=== PATIENT | female | born 1965 | race Caucasian/White ===

== ENCOUNTER 2019-11-01 09:20 | Outpatient (CLI) | payer MEDICARE, MEDICAID, SELFPAY ==
--- NOTE | 2019-11-01 20:13 | ONC CON_ITS ---
Dr. Kilgore New Patient Note Patient: Cielo Pimentel Unit #: [id number]: [id number] Dicatated By: Leandro Kilgore M.D.Date of Visit: Nov 01, 2019 Onc MED New Patient/Consult Referring Physician: SABRINA LEAHY, F.N.P. Chief Complaint: Vulvar cancer. 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 She had presented with an area of irritation and skin thickening involving the right labia majora with extension to the left labia majora. She had indicated she had been aware of a lesion in that area for at least 35 years. The initial biopsies on 12/16/2018 showed squamous cell carcinoma in situ involving both the right and left labia majora. She was then referred to Dr. Nickerson in [place]. She underwent radical partial vulvectomy on 01/24/2019. Pathology showed moderately differentiated keratinizing squamous cell carcinoma which was noted to be present multifocally within a broad area of carcinoma in situ. The largest contiguous area of invasion measured 1.3 cm in greatest dimension. The depth of invasion was 4 mm. The closest margin of invasive carcinoma measured 1.8 cm. The closest margin of in situ cancer measured 0.4 cm. It was classified as a T1b tumor based on the depth of invasion. During her postoperative follow-up care she had some issues with the dissolvable sutures, which apparently did not all dissolved. Ultimately, though, she was recommended to proceed with staging bilateral femoral inguinal sentinel lymphadenectomy. However, she declined to have any further surgery. To my knowledge she has not had any other staging evaluation. She now seeks a second opinion regarding her further management. Her medical history is significant in that she has heterozygous for alpha-1 antitrypsin deficiency. She has asthma/COPD, and she has nonalcoholic steatohepatitis with cirrhosis. She also has gastroparesis. She says she feels good, though her energy is not that good, and she does have to take naps. Her ECOG score is 1. She does not have very good appetite. Her weight fluctuates. She does not have fever, night sweats, or hot flashes. She says her breathing is okay with her inhaler. She has just occasional cough. She does not complain of chest pain. She has nausea and occasional vomiting associated with the gastroparesis. She has acid reflux. Her bowels are sometimes loose, but sometimes hard. She has no complaints with bladder function, she does occasionally have swelling. She sometimes has pain in her wrists or fingers. She has a history of migraine headaches, but they have been pretty well managed with Topamax. She occasionally has dizziness. She has no focal neurologic symptoms. Past Medical History: Her medical history includes anxiety/depression, asthma, chronic diarrhea, chronic obstructive pulmonary disease, degenerative arthritis, gastroesophageal reflux disease, gastroparesis, hypothyroidism, migraine headaches, and non-alcoholic steatohepatitis with cirrhosis. She is known to have heterozygosity for alpha 1 antitrypsin deficiency, Past Surgical History: She underwent biopsy of the vulvar lesion on 12/16/2018 and she underwent radical partial vulvectomy on 01/24/2019. Her other surgical/procedural history includes appendectomy, cholecystectomy, left breast lumpectomy for benign disease, tubal ligation, and hysterectomy without oophorectomy in 2002. Medications: Advair HFA 1 Puff(s) (of 230-21 mcg/act) Aerosol Inhalation b.i.d., Atorvastatin Calcium 1 Tablet (of 40 mg) Oral daily, Carafate 1 Tablet (of 1 g) Oral four times a day, EpiPen 2-Gildardo Injection PRN, Fenofibrate 1 Tablet (of 145 mg) Oral daily, Fish Oil 1 Capsule (of 1000 mg) Oral four times a day, IBU 1 Tablet (of 800 mg) Oral q 6 hours, Lasix 1 Tablet (of 40 mg) Oral PRN, Levothyroxine Sodium 1 Tablet (of 25 mcg) Oral daily, Singulair 1 Tablet (of 10 mg) Oral daily, Topamax 1 Tablet (of 200 mg) Oral b.i.d., Xopenex HFA 2 Puff(s) (of 45 mcg/act) Aerosol Inhalation PRN Allergies: Adhesive Tape, Codeine Sulfate, Erythromycin, HYDROcodone-Acetaminophen, Insect Stings, Morphine Sulfate, Reglan, and Wellbutrin. Social History: Ms. Pimentel is . She has a history of smoking for 30 years, previously up to 1 pack of cigarettes daily. For at least 10 years or more she has cut down her smoking to less than 1/2 pack/day. She does not drink alcohol. Family History: Father in a motor vehicle accident at age 32. Her mother reportedly of cancer at age 42, type unknown to the patient. She has 5 brothers and 3 sisters. One brother and one sister with complications of alpha-1 antitrypsin deficiency. Another brother is still living with homozygous alpha-1 antitrypsin deficiency. Another brother has coronary artery disease and diabetes. Review Of Symptoms: Constitutional - Her energy is not very good. She does light work at home. Her appetite is poor. Her weight fluctuates. No fever, chills, hot flashes, or night sweats. ECOG score is 1, Eyes - No change in vision, ENMT - No hearing loss or tinnitus. She has allergies. No mouth sores. No sore throat or difficulty swallowing, Hematologic/Lymphatic - No abnormal bruising or bleeding, Respiratory - No shortness of breath. No cough. No pleuritic pain or hemoptysis. She does smoke cigarettes, less than half a pack a day, Cardiovascular - No angina pain. No palpitations, Gastrointestinal - She has gastroparesis with nausea and with occasional vomiting. She has heartburn and acid reflux. Her bowels vary between diarrhea and constipation. No blood in the stool or black stools, Genitourinary (F) - No dysuria or hematuria. No urinary frequency. No urgency or incontinence, Musculoskeletal - She occasionally has pain in her fingers and wrists, Integumentary - No skin complications, Neurologic - She has had headaches, but they have been managed very well with Topamax. She has occasional dizziness. No numbness/paresthesias or other focal neurologic symptoms, Psychiatric - She has anxiety and depression, but she manages it on her own. She does not sleep well at night. Vital Signs: Performed on Nov 01, 2019 10:28: 0, 25.89, 1.82 sq.m, 66.00 in, 93 % (LOW), 81 /min, 22 /min, 120/85 mm(hg), 97.8 F (LOW), and 160.4 lbs (HIGH). Physical Examination: Constitutional - She appears to be in good general health, Eyes - Sclerae nonicteric. Conjunctivae clear, ENMT - No lesions noted in the oral cavity, Neck - No mass or thyromegaly, Hematologic/Lymphatic - No cervical, clavicular, or axillary adenopathy, Respiratory - Lungs are clear with diminished air movement bilaterally, Cardiovascular - Heart rhythm is regular. There is no murmur, gallop, or rub noted, Abdomen - Soft and non-tender. Liver and spleen are not enlarged. There is no abdominal mass or ascites noted and there is no inguinal adenopathy, Genitalia/Groin/Buttock (F) - There is no evidence of local recurrence at the excision site in the anterior aspect of the vulva, Back/Spine - No spine or CVA tenderness noted, Extremities - No edema. Dorsalis pedis pulses are palpable bilaterally, Integumentary - No rashes. No suspicious skin lesions noted, Neurologic - No focal neurologic deficits noted. Impression: 1. 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 2. She underwent radical partial vulvectomy on 01/24/2019 with clear margins. 3. She declined to undergo staging bilateral femoral inguinal sentinel lymphadenectomy. Her other medical illnesses include: 4. She is known to have heterozygosity for alpha-1 antitrypsin deficiency. 5. Nonalcoholic steatohepatitis with cirrhosis. 6. COPD. 7. Gastroparesis. 8. Hypothyroidism. 9. GERD. 10. Degenerative arthritis. 11. Chronic migraine. 12. Anxiety/depression. Plan: The pathology results were reviewed with the patient and her . We discussed the clinical implications. She had an invasive squamous cell carcinoma of the vulva which was completely excised with radical partial vulvectomy. In the setting of invasive carcinoma with 4 mm of invasion she was advised to undergo staging lymphadenectomy, which she declined. At this interval from her surgery, surgical lymph node staging would no longer be appropriate, but I would recommend that she have a staging CT abdomen/pelvis. She can then have further evaluation as indicated. In the absence of any evidence of recurrent disease, she can be followed on observation/expectant management, but that should include regular visits with a cloth booker. She is scheduled to have laboratory studies done next week, and I will include a CBC and CMP. CT abdomen/pelvis will be scheduled when those results are available. All of their questions were addressed. She is reminded that she absolutely needs to stop smoking. Signed By: Leandro Kilgore M.D. <<Signature on File>>
== END 2019-11-01 09:21 | disposition home or self-care (01) ==
LOC: ONCMED 09:20
PROVIDERS: Family Provider Internal Medicine; PCP Nurse Practitioner Family; Referring Provider Nurse Practitioner Family; Visit Provider Internal Medicine Hematology & Oncology
DX: C51.0 Malignant neoplasm of labium majus (principal); E88.01 Alpha-1-antitrypsin deficiency; J44.9 Chronic obstructive pulmonary disease, unspecified; K74.60 Unspecified cirrhosis of liver; K75.81 Nonalcoholic steatohepatitis (NASH); F41.8 Other specified anxiety disorders; K52.9 Noninfective gastroenteritis and colitis, unspecified; K21.9 Gastro-esophageal reflux disease without esophagitis; E03.9 Hypothyroidism, unspecified; F17.210 Nicotine dependence, cigarettes, uncomplicated; K31.84 Gastroparesis; G43.709 Chronic migraine without aura, not intractable, without status migrainosus; M19.90 Unspecified osteoarthritis, unspecified site; Z79.51 Long term (current) use of inhaled steroids; Z79.899 Other long term (current) drug therapy; Z98.890 Other specified postprocedural states
CPT/HCPCS: 99205

== ENCOUNTER 2019-11-10 07:26 | Outpatient (CLI) | payer MEDICARE, MEDICAID, SELFPAY ==
--- NOTE | 2019-11-10 07:30 | CT_ITS ---
WS: [id number] CT ABDOMEN PELVIS TECHNIQUE: Contrast-enhanced CT of the abdomen and pelvis with coronal and sagittal reformatted image s. CLINICAL INFORMATION: VULVAR CANCER COMPARISON: None. DLP: 975.[address] scans at [facility] use at least one of these dose optimization techniques: automat ed exposure control; mA and/or kV adjustment per patient size (includes targeted exams where dose is matched to clinical indication); or iterative reconstruction. FINDINGS: Mild diffuse fatty infiltration of the liver. Normal portal vein and splenic vein. Hepatic granulomas . Cholecystectomy clips. Prior hysterectomy. Low-attenuation right ovarian cystic lesion measuring 3. 2 CCM. This can be followed up with ultrasound. No pelvic or inguinal lymphadenopathy. Splenic granulomas. Normal GE junction. Adrenal glands are normal. Normal renal parenchymal enhanceme nt. Tiny left renal cyst. Normal pancreas. Normal caliber abdominal aorta. Aortic calcification. Sigm oid diverticulosis. No evidence of acute diverticulitis. No evidence of small or large bowel obstruct ion. No inguinal lymphadenopathy. Lung bases are well aerated. CT/CT abdomen pelvis w con* [id number] IMPRESSION: 1. Prior postoperative changes cholecystectomy and hysterectomy. 2. Diffuse fatty infiltration of the liver. 3. No abdominal or pelvic lymphadenopathy. 4. Sigmoid diverticulosis. No evidence of acute diverticulitis. 5. Urine distended bladder. Right ovarian low-attenuation cystic lesion measur ing 3.2 CM. This could be followed up with ultrasound. 6. No evidence of metastatic disease in the abdomen or pelvis.
[2019-11-10] MEDS: iohexol 300 mg/mL 50 mL Btl PO (07:39)
[2019-11-10] MEDS: iohexol 300 mg/mL 100 mL Btl IV (09:06)
== END 2019-11-10 07:27 | disposition home or self-care (01) ==
LOC: CT 07:28
PROVIDERS: Family Provider Nurse Practitioner Family; PCP Nurse Practitioner Family; Visit Provider Internal Medicine Medical Oncology
DX: C51.0 Malignant neoplasm of labium majus (principal); K57.30 Diverticulosis of large intestine without perforation or abscess without bleeding; N32.89 Other specified disorders of bladder; K76.0 Fatty (change of) liver, not elsewhere classified; N83.201 Unspecified ovarian cyst, right side
CPT/HCPCS: 74177

== ENCOUNTER 2019-11-17 09:20 | Outpatient (CLI) | payer MEDICARE, MEDICAID, SELFPAY ==
--- NOTE | 2019-11-17 | US_ITS ---
NOTE: Report was unsigned for reason: Order was edited. Original Signature date and time was: 11/16/19 1126 WS: [id number] TRANSABDOMINAL AND TRANSVAGINAL PELVIC ULTRASOUND HISTORY: RT OVARIAN CYST COMPARISON: CT pelvis 11/10/2019 Prior hysterectomy. No midline mass identified. Uterus has been removed. Right ovary: RIGHT ovary measures 2.1 x 2.3 x 1.3 cm. There is a simple cyst associated with the RIGHT ovary measuring 3.3 x 1.7 x 2.1 cm. Left ovary: 1.7 x 1.4 x 1.7 cm; atrophic ovary. No solid or cystic mass. No free fluid. [facility] US/US pelvic complete* [id number] IMPRESSION: 1. Simple RIGHT ovarian cyst measures 3.3 x 1.7 x 2.1 cm. Correlates with the cyst described on the prior CT. No solid component. 2. Prior hysterectomy.
== END 2019-11-17 09:21 | disposition home or self-care (01) ==
PROVIDERS: Family Provider Nurse Practitioner Family; PCP Nurse Practitioner Family; Visit Provider Nurse Practitioner Family
DX: Z01.89 Encounter for other specified special examinations (principal)

== ENCOUNTER 2020-03-18 12:49 | Outpatient (CLI) | payer MEDICARE, MEDICAID, SELFPAY ==
--- NOTE | 2020-03-18 12:56 | XR_ITS ---
WS: [id number] SCREENING DEXA SCAN [facility] CLINICAL INFORMATION: POST MENOPAUSAL COMPARISON: None. FINDINGS: The L1-L4 bone mineral density measures 1.103 g/cm2. This corresponds to a T score score of -0.6 and Z score of 0.0. Left femoral neck bone mineral density measures 0.941 g/cm2. This corresponds to a T score of -0.5 an d Z score of 0.0. Right femoral neck bone mineral density measures 0.933 g/cm2. This corresponds to a T score -0.6of an d Z score of 0.0. Mean femoral neck bone mineral density measures 0.937 g/cm2. This corresponds to a T score of -0.6 an d Z score of 0.0. XR/XR DEXA axial skeleton* [id number] IMPRESSION: Normal bone mineralization. Patient's FRAX calculated 10 year probability for major osteoporotic fracture i s 7.7 % and osteoporotic hip fracture is 1.2%.
--- NOTE | 2020-03-18 14:42 | MM_ITS ---
WS: [id number] DIAGNOSTIC BILATERAL DIGITAL MAMMOGRAM WITH CAD LEFT breast ultrasound, limited HISTORY: LEFT breast lump at 9-10 o'clock. COMPARISON: None available. TECHNIQUE: Bilateral craniocaudad, mediolateral oblique, and mediolateral views are submitted. Spot c ompression LEFT CC and MLO. Computer aided detection utilized. Breast composition: There are scattered areas of fibroglandular density. No abnormality is noted bene ath the palpable marker which is placed near 9:00. There are benign calcifications in each breast. LEFT breast ultrasound, limited. No solid or cystic mass. No distortion. MM/[place] [id number] IMPRESSION: BI-RADS: 2-Benign FOLLOW UP: 1 Year Follow-up
--- NOTE | 2020-03-18 14:52 | US_ITS ---
WS: [id number] DIAGNOSTIC BILATERAL DIGITAL MAMMOGRAM WITH CAD LEFT breast ultrasound, limited HISTORY: LEFT breast lump at 9-10 o'clock. COMPARISON: None available. TECHNIQUE: Bilateral craniocaudad, mediolateral oblique, and mediolateral views are submitted. Spot c ompression LEFT CC and MLO. Computer aided detection utilized. Breast composition: There are scattered areas of fibroglandular density. No abnormality is noted bene ath the palpable marker which is placed near 9:00. There are benign calcifications in each breast. LEFT breast ultrasound, limited. No solid or cystic mass. No distortion. US/US breast LT limited* [id number] IMPRESSION: BI-RADS: 2-Benign FOLLOW UP: 1 Year Follow-up
== END 2020-03-18 12:50 | disposition home or self-care (01) ==
PROVIDERS: Family Provider Nurse Practitioner Family; PCP Nurse Practitioner Family; Visit Provider Nurse Practitioner Family
DX: N63.22 Unspecified lump in the left breast, upper inner quadrant (principal); Z78.0 Asymptomatic menopausal state
CPT/HCPCS: 76642; 77066; 77080

== ENCOUNTER 2020-11-07 13:19 | Outpatient (CLI) | payer MEDICARE, MEDICAID, SELFPAY ==
--- NOTE | 2020-11-11 07:32 | ONC FU_ITS ---
Dr. Kilgore Patient Follow-Up Note Patient: Cielo Pimentel Unit #: [id number]: [id number] Dicatated By: Leandro Kilgore M.D.Date of Visit:Nov 07, 2020 Onc Med Follow-up/Prog Note Chief Complaint: Vulvar cancer. 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 She had presented with an area of irritation and skin thickening involving the right labia majora with extension to the left labia majora. She had indicated she had been aware of a lesion in that area for at least 35 years. The initial biopsies on 12/16/2018 showed squamous cell carcinoma in situ involving both the right and left labia majora. She was then referred to Dr. Nickerson in [place]. She underwent radical partial vulvectomy on 01/24/2019. Pathology showed moderately differentiated keratinizing squamous cell carcinoma which was noted to be present multifocally within a broad area of carcinoma in situ. The largest contiguous area of invasion measured 1.3 cm in greatest dimension. The depth of invasion was 4 mm. The closest margin of invasive carcinoma measured 1.8 cm. The closest margin of in situ cancer measured 0.4 cm. It was classified as a T1b tumor based on the depth of invasion. During her postoperative follow-up care she had some issues with the dissolvable sutures, which apparently did not all dissolved. Ultimately, though, she was recommended to proceed with staging bilateral femoral inguinal sentinel lymphadenectomy. However, she declined to have any further surgery. I had seen her initially on 11/01/2019. As best I could determine, she did not have any other staging evaluation, and I did recommend that she have a CT abdomen/pelvis. It did show evidence of diffuse fatty infiltration of the liver, but there was no abdominal or pelvic lymphadenopathy or other evidence of recurrent or metastatic disease. She was recommended to continue observation/expectant management. Her medical history is also significant in that she has heterozygous for alpha-1 antitrypsin deficiency. Her other medical illnesses include asthma/COPD, GERD, gastroparesis, hypothyroidism, and nonalcoholic steatohepatitis with cirrhosis. She has a history of chronic migraine, and she also has anxiety/depression. She has a history of smoking for 30 years, previously up to 1 pack of cigarettes daily. She did cut down, though, and for least the past 10 years she has been smoking 1/2 pack/day or less. She is seen for a follow-up visit. She says she has been feeling really good other than she does intend to sleep very soundly. She has pretty good energy and she has normal activity. ECOG score is 0. Her oral intake is limited somewhat due to her gastroparesis. Her weight does tend to fluctuate and recently has been down a little. She does not have fever, night sweats, or hot flashes. She says her breathing has been okay. She did have a cough last month, but it is better now. She says she is smoking very little. She does not complain of chest pain. She has nausea occasionally. She has no other GI complaints. She reports having frequent urination. She has had some pain in her left shoulder. She has no other joint or bone pain. She does not complain of headache or dizziness, and she has no focal neurologic symptoms. Medications: Advair HFA 1 Puff(s) (of 230-21 mcg/act) Aerosol Inhalation b.i.d., Atorvastatin Calcium 1 Tablet (of 40 mg) Oral daily, Carafate 1 Tablet (of 1 g) Oral four times a day, EpiPen 2-Gildardo Injection PRN, Fenofibrate 1 Tablet (of 145 mg) Oral daily, Fish Oil 1 Capsule (of 1000 mg) Oral four times a day, IBU 1 Tablet (of 800 mg) Oral q 6 hours, Lasix 1 Tablet (of 40 mg) Oral PRN, Levothyroxine Sodium 1 Tablet (of 25 mcg) Oral daily, Singulair 1 Tablet (of 10 mg) Oral daily, Topamax 1 Tablet (of 200 mg) Oral b.i.d., Xopenex HFA 2 Puff(s) (of 45 mcg/act) Aerosol Inhalation PRN Allergies: Adhesive Tape, Codeine Sulfate, Erythromycin, HYDROcodone-Acetaminophen, Insect Stings, Morphine Sulfate, Reglan, and Wellbutrin. Vital Signs: Performed on Nov 07, 2020 13:50 Height - 66.00 in Weight - 153.8 lbs (LOW) BSA - 1.79 sq.m BMI - 24.82 Temperature - 98 F (LOW) Pulse - 100 /min Respiration - 20 /min BP - 109/68 mm(hg) O2 Sat - 91 % (LOW) Pain - 0 Fatigue - 0 Physical Examination: Constitutional - She looks pretty good generally, Eyes - Sclerae nonicteric. Conjunctivae clear, ENMT - No lesions noted in the oral cavity, Hematologic/Lymphatic - No cervical, clavicular, or axillary adenopathy, Respiratory - Lungs sound clear with diminished air movement bilaterally, Cardiovascular - Heart rhythm is regular. There is no murmur, gallop, or rub noted, Abdomen - Soft. Liver and spleen are not enlarged. There is no abdominal mass or ascites noted and there is no inguinal adenopathy, Extremities - No edema. There are small purpuric lesions on both arms, Neurologic - No focal neurologic deficits noted. Problem List: 1. Moderately differentiated keratinizing squamous cell carcinoma of the vulva, stage T1b, Nx. 2. She is known to have heterozygosity for alpha-1 antitrypsin deficiency. 3. Nonalcoholic steatohepatitis with cirrhosis. 4. COPD. 5. Gastroparesis. 6. Hypothyroidism. 7. GERD. 8. Degenerative arthritis. 9. Chronic migraine. 10. Anxiety/depression. 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 She underwent radical partial vulvectomy on 01/24/2019 with clear margins. She declined to undergo staging bilateral femoral inguinal sentinel lymphadenectomy. As such, she has been followed on observation/expectant management. Thus far during follow-up her clinical status has remained stable. She does need to be scheduled for baseline lab studies and for surveillance CT abdomen/pelvis, which I think should be done yearly. We also discussed the fact that it is imperative that she have follow-up with a cutter aluminum sheet, which she has not done, and that will also be scheduled. In the absence of any evidence of recurrence of the vulvar cancer, I will plan to see her again in 1 year. Signed By: Leandro Kilgore M.D. <<Signature on File>>
== END 2020-11-07 13:20 | disposition home or self-care (01) ==
PROVIDERS: PCP Nurse Practitioner Family; Visit Provider Internal Medicine Medical Oncology
DX: C51.0 Malignant neoplasm of labium majus (principal); E88.01 Alpha-1-antitrypsin deficiency; K75.81 Nonalcoholic steatohepatitis (NASH); J44.9 Chronic obstructive pulmonary disease, unspecified; K31.84 Gastroparesis; E03.9 Hypothyroidism, unspecified; K21.9 Gastro-esophageal reflux disease without esophagitis; M19.90 Unspecified osteoarthritis, unspecified site; G43.919 Migraine, unspecified, intractable, without status migrainosus; F41.9 Anxiety disorder, unspecified; F32.9 Major depressive disorder, single episode, unspecified; Z79.899 Other long term (current) drug therapy
CPT/HCPCS: 99214

== ENCOUNTER 2020-11-19 11:19 | Outpatient (CLI) | payer MEDICARE, MEDICAID, SELFPAY ==
[2020-11-19 12:18] LABS: Basophils # 0.1 10^3/uL (0.0-0.1); Basophils % 0.8 %; Eosinophils # 0.1 10^3/uL (0.0-0.8); Eosinophils % 0.8 %; Hematocrit 48.3 % (37.0-47.0); Lymphocytes # 2.6 10^3/uL (0.8-4.8); Lymphocytes % 40.5 %; Mean Corpuscular HGB Conc 33.1 g/dL (30.0-36.0); Mean Corpuscular Hemoglobin 30.8 pg (28.0-34.0); Mean Corpuscular Volume 93.1 fL (81-99); Mean Platelet Volume 9.4 fL (7.4-10.4); Monocytes # 0.3 10^3/uL (0.2-0.9); Monocytes % 5.1 %; Neutrophils # 3.43 10^3/uL (1.8-7.7); Neutrophils % 52.6 %; Nucleated Red Blood Cells % 0 %; Platelet Count 342 10^3/cmm (130-400); Red Blood Count 5.19 10^6/uL (4.1-5.3); White Blood Count 6.5 10^3/uL (4.0-10.0)
--- NOTE | 2020-11-19 12:30 | CT_ITS ---
WS: [id number] CT ABDOMEN AND PELVIS WITH CONTRAST HISTORY: VULVAR CANCER TECHNIQUE: Imaging performed of the abdomen and pelvis with IV contrast. Single phase imaging of the abdomen. Coronal and sagittal reformats are submitted. All CT scans at [facility] use at least one of these dose optimization techniques: automated exposure control; mA and/or kV adjustment per patient size (includes targeted exams where dose is matched to clinical indication); or iterativ e reconstruction. IV CONTRAST: Omnipaque 300; 95 mL IV. Oral contrast: Yes. DLP: 1075.63 mGycm COMPARISON: 11/10/2019 Lower thorax: Lung bases are clear. Heart is normal size. No hiatal hernia. Liver/biliary system: Slightly enlarged liver with granulomata. No metastatic lesions. No bile duct d ilatation. Gallbladder: Status post cholecystectomy. Pancreas: Normal. Spleen: Normal size with granulomata. Adrenal glands: Normal. Right kidney: Cortical cyst measures 5 mm mid kidney. No obstruction. Left kidney: Normal. Aorta: Moderate atherosclerosis with no aneurysm. Lymphadenopathy: None. Free fluid: None. GI tract: Prior appendectomy. No GI tract obstruction or metastatic implants. There are a few scatter ed diverticula in the descending and sigmoid colon without inflammation. Abdominal wall: Unremarkable abdominal wall. No hernia. Pelvis: Well-distended urinary bladder. Again noted is the cystic lesion in the RIGHT adnexa which is related to the RIGHT ovary is seen on prior studies. There is no ascites or adenopathy in the pelvis . Prior hysterectomy. Bones: No osteoblastic or osteolytic bone disease. CT/CT abdomen pelvis w con* [id number] IMPRESSION: 1. Prior hysterectomy and appendectomy and cholecystectomy. 2. Stable cystic lesion associated with the RIGHT ovary. No ascites or adenopa thy in the abdomen or pelvis. No metastatic lesions. 3. Mild hepatomegaly. 4. Splenic and hepatic granulomata.
[2020-11-19] MEDS: iohexol 300 mg/mL 50 mL Btl PO (12:38)
[2020-11-19 12:41] LABS: Alanine Aminotransferase 15 U/L (0-33); Albumin Level 4.3 g/dL (3.5-5.2); Alkaline Phosphatase 42 IU/L (35-105); Anion Gap 12.9 (5-19); Aspartate Amino Transferase 14 U/L (0-32); Blood Urea Nitrogen 13 mg/dL (6-20); Calcium 9.3 mg/dL (8.5-10.5); Carbon Dioxide 21 mmol/L (22-29); Chloride 106 mmol/L (98-107); Globulin 3.2 g/dL (1.3-4.6); Glomerular Filtration Rate 127.2 mL/min (90-130); Glucose 90 mg/dL (65-115); Osmolality Calculated 282 mOsm/kg (285-295); Potassium 3.9 mmol/L (3.5-5.1); Sodium 136 mmol/L (136-145); Total Bilirubin 0.2 mg/dL (0.15-1.2); Total Protein 7.5 g/dL (6.6-8.7)
[2020-11-19] MEDS: iohexol 300 mg/mL 100 mL Btl IV (14:12)
== END 2020-11-19 11:20 | disposition home or self-care (01) ==
PROVIDERS: PCP Nurse Practitioner Family; Visit Provider Internal Medicine Medical Oncology
DX: C51.0 Malignant neoplasm of labium majus (principal); Z90.710 Acquired absence of both cervix and uterus; N83.201 Unspecified ovarian cyst, right side; R16.0 Hepatomegaly, not elsewhere classified
CPT/HCPCS: 36415; 74177; 80053; 85025; Q9967

== ENCOUNTER → 2020-12-18 10:38 | Outpatient (BNVA) | payer MEDICARE, MEDICAID, SELFPAY | PROVIDERS: PCP Nurse Practitioner Family; Referring Provider Nurse Practitioner Family; Visit Provider Orthopaedic Surgery | DX: M25.512 Pain in left shoulder (principal) | CPT/HCPCS: 73030 ==

== ENCOUNTER 2021-04-02 10:22 | Outpatient (CLI) | payer MEDICARE, MEDICAID, SELFPAY ==
--- NOTE | 2021-04-02 10:29 | XR_ITS ---
WS: [id number] Chest 2 views, 04/02/2021 Clinical Data: Shortness of breath Comparison: None. Findings: No nodules, masses or effusions are seen. The heart is normal. There is bilateral patchy at electasis and/or minimal pneumonia at both lung bases. The pulmonary vascularity is not increased. No pneumothorax is seen. The aortic arch and descending aorta show tortuosity. XR/XR chest 2V* [id number] Impression: Minimal patchy bilateral lower lobe opacities which may indicate atelectasis an d/or minimal pneumonia.
== END 2021-04-02 10:23 | disposition home or self-care (01) ==
PROVIDERS: PCP Nurse Practitioner Family; Visit Provider Internal Medicine Cardiovascular Disease
DX: J45.909 Unspecified asthma, uncomplicated (principal); R06.02 Shortness of breath
CPT/HCPCS: 71046

== ENCOUNTER → 2021-04-09 11:10 | Outpatient (BNVA) | payer MEDICARE, MEDICAID, SELFPAY | PROVIDERS: PCP Nurse Practitioner Family; Visit Provider Internal Medicine Critical Care Medicine | DX: J45.909 Unspecified asthma, uncomplicated (principal); Z20.822 Contact with and (suspected) exposure to COVID-19 | CPT/HCPCS: 87635 ==

== ENCOUNTER → 2021-05-28 09:32 | Outpatient (BNVA) | payer MEDICARE, MEDICAID, SELFPAY | PROVIDERS: PCP Nurse Practitioner Family; Visit Provider Internal Medicine Critical Care Medicine | DX: Z01.818 Encounter for other preprocedural examination (principal); Z20.822 Contact with and (suspected) exposure to COVID-19 | CPT/HCPCS: 87635 ==

== ENCOUNTER 2021-06-03 09:05 | Outpatient (CLI) | payer MEDICARE, MEDICAID, SELFPAY ==
--- NOTE | 2021-06-03 10:16 | PFTS_ITS ---
Date of Study:06/03/21 Date of Dictation: MECHANICS: Forced vital capacity (FVC) is reduced. Forced expiratory volume in one second (FEV1) is reduced. FEV1/FVC is reduced. FLOW VOLUME LOOP: Reduced flow at all lung volumes with significant scooping. LUNG VOLUMES: Total lung capacity (TLC) is increased. Residual volume (RV) is increased. DIFFUSING CAPACITY FOR CARBON MONOXIDE: Severely reduced. INTERPRETATION: The prebronchodilator spirometry is consistent with severe obstruction. No postbronchodilator spirometry was performed. Lung volumes are consistent with hyperinflation and air trapping. Gas exchange (DLCO) is severely reduced. MTDD
== END 2021-06-03 09:06 | disposition home or self-care (01) ==
PROVIDERS: PCP Nurse Practitioner Family; Visit Provider Internal Medicine Critical Care Medicine
DX: J45.909 Unspecified asthma, uncomplicated (principal)
CPT/HCPCS: 94010; 94726; 94729

== ENCOUNTER → 2021-06-24 14:06 | Outpatient (BNVA) | payer MEDICARE, MEDICAID, SELFPAY | PROVIDERS: PCP Nurse Practitioner Family; Referring Provider Nurse Practitioner Family; Visit Provider Podiatrist Foot & Ankle Surgery | DX: M79.671 Pain in right foot (principal) | CPT/HCPCS: 73630 ==

== ENCOUNTER → 2021-06-26 15:20 | Outpatient (BNVA) | payer MEDICARE, MEDICAID, SELFPAY | PROVIDERS: PCP Nurse Practitioner Family; Visit Provider Obstetrics & Gynecology | DX: Z00.00 Encounter for general adult medical examination without abnormal findings (principal) | CPT/HCPCS: 87624 ==

== ENCOUNTER 2021-07-16 08:31 | Outpatient (CLI) | payer MEDICARE, MEDICAID, SELFPAY ==
--- NOTE | 2021-07-16 08:45 | CT_ITS ---
WS: [id number] CT CHEST WITHOUT INTRAVENOUS CONTRAST HISTORY: SOB TECHNIQUE: Contiguous 5 mm axial imaging performed on the thorax. Coronal and sagittal reformats are submitted. All CT scans at [facility] use at least one of these dose optimization techniques: automated exposure control; mA and/or kV adjustment per patient size (includes targeted exams where dose is matched to clinical indication); or iterative reconstruction. CONTRAST: None DLP: 694.32 mGycm COMPARISON: Chest radiograph 04/02/2021 Lungs and central airway: Mild pulmonary hyperexpansion with thickening of the distal pulmonary inter stitium. Benign granuloma at the RIGHT lung base. There are a few very vague areas of developing grou ndglass attenuation within the periphery of the lower lung rhodes. Pleura: Normal. No pleural effusion. Heart and pericardium: Normal size heart. Mild increased amount of pericardial fat. Mediastinum and carrie: Small mediastinal and hilar lymph nodes. Vessels: Very mild atherosclerosis aorta. No aneurysm. Pulmonary artery size is equal to the aorta. T here are a few coronary artery calcifications also. Most significant in the LEFT anterior descending coronary artery. Chest wall and lower neck: No soft tissue masses. Upper abdomen: No adrenal mass. Hepatic and splenic granulomata. Liver is mildly enlarged with diffus e hepatic steatosis. Small hiatal hernia. Prior cholecystectomy. Osseous structures: No destructive process. CT/CT chest wo con [id number] IMPRESSION: 1. Chronic emphysema with mild interstitial thickening which can be related to respiratory interstitial lung disease associated with smoking. 2. Mild atherosclerosis aorta and scattered calcifications in the LEFT anterio r descending coronary artery. 3. Hepatic steatosis and hepatomegaly.
== END 2021-07-16 08:32 | disposition home or self-care (01) ==
PROVIDERS: PCP Nurse Practitioner Family; Visit Provider Internal Medicine Critical Care Medicine
DX: J45.909 Unspecified asthma, uncomplicated (principal); R06.02 Shortness of breath; J43.9 Emphysema, unspecified; I70.0 Atherosclerosis of aorta; K76.0 Fatty (change of) liver, not elsewhere classified; R16.0 Hepatomegaly, not elsewhere classified
CPT/HCPCS: 71250

== ENCOUNTER → 2021-09-10 10:05 | Outpatient (BNVA) | payer MEDICARE, MEDICAID, SELFPAY | PROVIDERS: PCP Nurse Practitioner Family; Visit Provider Podiatrist Foot & Ankle Surgery | DX: L08.9 Local infection of the skin and subcutaneous tissue, unspecified (principal); M79.674 Pain in right toe(s) | CPT/HCPCS: 73630 ==

== ENCOUNTER → 2022-02-26 08:45 | Outpatient (BNVA) | payer MEDICARE, MEDICAID, SELFPAY | PROVIDERS: PCP Nurse Practitioner Family; Visit Provider Podiatrist Foot & Ankle Surgery | DX: M79.672 Pain in left foot (principal); L60.3 Nail dystrophy | CPT/HCPCS: 11750 ==

== ENCOUNTER → 2022-04-06 09:53 | Outpatient (BNVA) | payer MEDICARE, MEDICAID, SELFPAY | PROVIDERS: PCP Nurse Practitioner Family; Visit Provider Internal Medicine Critical Care Medicine | DX: Z14.8 Genetic carrier of other disease (principal); J44.9 Chronic obstructive pulmonary disease, unspecified; F17.210 Nicotine dependence, cigarettes, uncomplicated | CPT/HCPCS: 99214 ==

== ENCOUNTER 2022-07-23 08:24 | Outpatient (CLI) | payer MEDICARE, MEDICAID, SELFPAY ==
--- NOTE | 2022-07-23 08:32 | MM_ITS ---
WS: [id number] SCREENING DIGITAL BREAST TOMOSYNTHESIS MAMMOGRAM WITH CAD HISTORY: SCREENING COMPARISON: 03/18/2020 Bilateral CC and MLO with tomosynthesis and synthetic mammography submitted. Computer aided detection analyzed. Breast composition: There are scattered areas of fibroglandular density. . Subtle new asymmetry in th e upper outer quadrant of the LEFT breast at a middle depth. Benign calcifications in each breast. MM/[place] [id number] IMPRESSION: BI-RADS: 0-Incomplete: Need additional imaging evaluation FOLLOW UP: Need Additional Imaging LEFT breast: Spot compression views (CC and MLO). True ML. Ultrasound to follow if abnormality persists.
== END 2022-07-23 08:25 | disposition home or self-care (01) ==
PROVIDERS: PCP Nurse Practitioner Family; Visit Provider Nurse Practitioner Family
DX: Z12.31 Encounter for screening mammogram for malignant neoplasm of breast (principal)
CPT/HCPCS: 77063; 77067

== ENCOUNTER 2022-12-23 17:23 | Emergency (ER) | payer MEDICARE, MEDICAID, SELFPAY ==
[2022-12-23] VITALS (24 sets, daily range): BP systolic 78–123; BP diastolic 47–91; PULSE 77–97; RESP 14–54; TEMP 36.7; O2SAT 69–98; BMI 26.6
--- NOTE | 2022-12-23 18:04 | ED_ITS ---
HPI - SOB/Dyspnea General: Chief Complaint: Shortness of Breath/Dyspnea Stated Complaint: low O2 Time Seen by Provider: 12/23/22 18:04 History of Present Illness: HPI Narrative: Ms. Pimentel is a 57-year-old lady with significant past medical history of hyperlipidemia, thyroid disorder, alpha-1 antitrypsin deficiency carrier presenting to the emergency department for shortness of breath. She has been intermittently dealing with respiratory symptoms for approximately 2 months. She reports the past few days having worsening symptoms including difficulty staying awake, failure to improve with breathing treatments, cough, generalized malaise. Today she was significantly worse and went to urgent care where she was noted to have oxygen saturations in the 60s. Mild associated chest pain, also endorses fevers.patient has been in outpatient steroids, antibiotics, used Xopenex without sustained improvement. No other specific changes in health, exacerbating, or alleviating factors identified. 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 Asthma Gastroparesis Gluten intolerance Hyperlipemia Pneumonia Thyroid disease Surgical History History of breast surgery lumps removed bilateral History of cholecystectomy History of decompression of ulnar nerve 2011, [place] History of hysterectomy 2006-[facility] History of tubal ligation Hx of appendectomy Family History Family/Other Bleeding disorder niece Mother Cancer Grandfather Cancer maternal Heart attack Brother Chronic kidney disease (CKD) stage 3 Diabetes Hyperlipidemia Hypertension Daughter Diabetes Ovarian cyst Brother Hyperlipidemia CAD (coronary artery disease) Other Alpha 1-antitrypsin PiMS phenotype Denies family history of Clotting disorder Anesthesia complication Social History Smoking and tobacco status: current every day smoker (0.5) Substance/Drug Use: never Physical Exam Const: COMMON NORMALS: alert GENERAL APPEARANCE: cooperative, well developed and ill appearing HENMT: COMMON NORMALS: normocephalic and atraumatic HEAD & SCALP: normocephalic and atraumatic Eye: COMMON NORMALS: conjunctivae normal CONJUNCTIVA: Yes conjunctivae normal SCLERA: sclerae normal Neck/C-Spine: COMMON NORMALS: supple GENERAL: Yes trachea midline Resp: COMMON NORMALS: clear to auscultation bilaterally EFFORT & INSPECTION: Yes tachypneic and Yes respiratory distress AUSCULTATION: clear to auscultation bilaterally Cardio: COMMON NORMALS: regular rate and regular rhythm RATE: regular rate RHYTHM: regular rhythm GI: COMMON NORMALS: Soft to palpation PALPATION: Yes Soft to palpation and No Tenderness to palpation present (GI) Extremity: GENERAL: Yes normal exam except as noted and No edema Neuro: COMMON NORMALS: moves all extremities SENSORIUM/ORIENTATION: Yes alert and No Orientation impaired Psych: COMMON NORMALS: mental status grossly normal and Normal thought process present THOUGHT PROCESS: Normal thought process present Course Vital Signs: Vital signs: Vital Signs Temperature 98.1 F 12/23/22 17:49 Pulse Rate 89 12/24/22 00:22 Respiratory Rate 20 H 12/24/22 00:22 Blood Pressure 95/63 12/24/22 00:22 Pulse Oximetry 90 12/24/22 00:22 Oxygen Delivery Me thod Non-Rebreather 12/23/22 18:33 Oxygen Flow Rate 15 12/23/22 22:01 MDM - SOB/Dyspnea Medical Decision Making 57-year-old lady with likely underlying lung disease though no baseline oxygen requirement presenting with 2-month history of worsening respiratory status with multiple rounds of outpatient therapy. Patient found to be hypoxemic and requiring 15 L of oxygen via nonrebreather mask. She is somewhat ill-appearing on clinical exam. RT treatment ordered with ipratropium, Xopenex as patient reports history of intolerance of albuterol due to tachycardia. Small fluid bolus and empiric antibiotics as well as steroids also ordered. EKG demonstrates sinus rhythm with left axis deviation, nonspecific ST segment abnormalities, no STEMI. Labs are notable for leukocytosis, normal hemoglobin. ABG is compensated on supplemental oxygen. Metabolic panel with hyponatremia, hypokalemia, hypochloremia, renal function is preserved. Negative range 2-hour delta troponin. BNP is elevated. Albumin mildly decreased. PCR viral panel is negative. Chest x-ray with no lobar consolidation or pneumothorax, there are bilateral likely effusions. Given severity of patient's illness as well as elevated D- dimer CT imaging is appropriate. Patient has multifocal pneumonia on CTA without evidence of pulmonary embolism. There is lymphadenopathy and mild cardiomegaly as well. Upon reassessment patient feels similar without significant improvement in oxygen requirement. Most likely etiology of patient's symptoms is acute hypoxic respiratory failure with pneumonia that has failed multiple rounds of outpatient management. She exhibits evidence of SIRS criteria. I strongly recommended admission and explained the risk of discharge to the patient multiple times and she adamantly declined admission. I attempted to understand the root of the patient's concern, she had a previous bad experience with a family member at our hospital, I offered to transfer the patient to anywhere that she was comfortable however she continued to decline transfer or admission. The patient is oriented to person, place, and time, has the capacity to make decisions regarding the medical care offered. The patient speaks coherently and exhibits no evidence of having an altered level of consciousness or alcohol or drug intoxication to a point that would impair judgment. The patient understands the relevant information of the nature of their medical condition, as well as the risks, benefits, and treatment alternatives (including non-treatment), consequences of refusing care, and can competently communicate a rational explanation about their choice of care options. Discharge instructions were provided to the patient. The patient understands they are welcome to return to the hospital at any time to receive the recommended care or any other care at any time. Information was also reinforced by nurse. Patient was evaluated by respiratory therapy and qualifies for home oxygen which was ordered. We contacted our DME supplier and patient provided with oxygen. I will additionally prescribe additional doses of Xopenex inhaler, steroids, a ntibiotics. Medical Records I reviewed the patient's medical records. Lab Data I reviewed the patient's lab results. 12/23/22 18:29 12/23/22 18:29 Labs/Radiology: Radiology Impressions Chest X-Ray 12/23/22 18:10 IMPRESSION: Bilateral small volume pleural effusions with bibasilar atelectasis. Chest CTA 12/23/22 19:21 IMPRESSION: 1. No CTA evidence of pulmonary embolism, thoracic aortic aneurysm or thoracic aortic dissection. 2. Some scattered regions of mild bronchovascular thickening and nodular ground-glass opacity seen in the lower right upper lobes, lingula, and right middle lobe regions. Medium-sized regions of irregular consolidation seen in bilateral lower lobes with air bronchograms. These findings may represent multifocal pneumonia. Recommend follow-up until resolution to exclude underlying pathology/ lymphangitic spread of tumor. 3. Mediastinal lymphadenopathy, as noted above. 4. Mild cardiomegaly. COMMENTS: In the absence of a history or active diagnosis of lung cancer, it is recommended that this patient with emphysema be evaluated for enrollment in a low dose CT lung cancer screening program. Laboratory Results WBC 16.0 10^3/uL (4.0-10.0) H 12/23/22 18: RBC 4.82 10^6/uL (4.1-5.3) 12/23/22 18: Hgb 14.6 g/dL (11.5-15.3) 12/23/22: Hct 43.1 % (37.0-47.0) 12/23/22 18: MCV 89.4 fl (81-99) 12/23/22 18: MCH 30.3 pg (28.0-34.0) 12/23/22 18: MCHC 33.9 g/dL (30.0-36.0) 12/23/22 18: RDW 15.0 % (12.1-15.1) 12/23/22 18: Plt Count 370 10^3/cmm (130-400) 12/23/22: MPV 10.1 fL (7.4-10.4) 12/23/22 18: Neut % (Auto) 81.4 % 12/23/22 18: Lymph % (Auto) 12.7 % 12/23/22 18: Barron % (Auto) 3.7 % 12/23/22 18: Eos % (Auto) 0.2 % 12/23/22 18: Baso % (Auto) 0.3 % 12/23/22 18: Neut # (Auto) 13.03 10^3/uL (1.8-7.7) H 12/23/22 18: Lymph # (Auto) 2.0 10^3/uL (0.8-4.8) 12/23/22 18:29 Barron # (Auto) 0.6 10^3/uL (0.2-0.9) 12/23/22 18: Eos # (Auto) 0.0 10^3/uL (0.0-0.8) 12/23/22 18: Baso # (Auto) 0.1 10^3/uL (0.0-0.1) 12/23/22 18: Nucleated RBC % (auto) 0.8 % 12/23/22 18: Nucleated RBCs # 0.1 /100WBC 12/23/22 18: D-Dimer 5.72 ug/mIFEU (0-0.59) H 12/23/22 18: Specimen Type Arterial 12/23/22 18:38 Sample Site Radial, left 12/23/22 18:38 ABG pH 7.40 (7.35-7.45) 12/23/22 18:38 ABG pCO2 41.5 mmHg (35-45) 12/23/22 18:38 ABG pO2 90.4 mmHg (80.0-100.0) 12/23/22 18:38 ABG HCO3 25.7 mmol/L (22-26) 12/23/22 18:38 ABG Base Excess 0.8 mmol/L (-2.0-2.0) 12/23/22 18:38 Kuldip Test Pos 12/23/22 18:38 Hematocrit 44.5 % (37-47) 12/23/22 18:38 Hgb O2 Saturation 92.4 % (95-100) L 12/23/22 18:38 Carboxyhemoglobin 3.2 %THgb (0.4-20.1) 12/23/22 18:38 Methemoglobin 0.3 % (0.4-1.5) L 12/23/22 18:38 Total Hemoglobin 14.5 g/dL (12-16) 12/23/22 18:38 O2 Delivery Device Nrb 12/23/22 18:38 O2 Liters/Min 15.0 % 12/23/22 18:38 Curator Herbarium ID glc 12/23/22 18:38 Sodium 131 mmol/L (136-145) L 12/23/22 18:29 Potassium 3.2 mmol/L (3.5-5.1) L 12/23/22 18:29 Chloride 94 mmol/L (98-107) L 12/23/22 18:29 Carbon Dioxide 25 mmol/L (22-29) 12/23/22 18:29 Anion Gap 15.2 (5-19) 12/23/22 18:29 BUN 15 mg/dL (6-20) 12/23/22 18: Creatinine 0.6 mg/dL (0.5-0.9) 12/23/22 18: GFR Calculation 102.3 mL/min (90-130) 12/23/22 18: Glucose 99 mg/dL (65-115) 12/23/22 18: Calculated Osmolality 273 mOsm/kg (285-295) L 12/23/22 18: Lactic Acid 1.0 mmol/L (0.5-2.2) 12/23/22 18: Calcium 8.4 mg/dL (8.5-10.5) L 12/23/22 18: Total Bilirubin 0.4 mg/dL (0.15-1.2) 12/23/22 18: AST 28 U/L (0-32) 12/23/22 18:29 ALT 24 U/L (0-33) 12/23/22 18:29 Alkaline Phosphatase 103 U/L (35-105) 12/23/22 18:29 Troponin T Baseline 36 ng/L (0-10) H 12/23/22 18:29 Troponin T 120 Minute 32.36 ng/L (0-10) H 12/23/22 20:30 Delta Troponin T -3.64 ABS# (0-10) L 12/23/22 20:30 NT-Pro-B Natriuret Pep 3253 pg/mL (0-125) H 12/23/22 18:29 Total Protein 7.3 g/dL (6.6-8.7) 12/23/22 18: Albumin 3.0 g/dL (3.5-5.2) L 12/23/22 18: Globulin 4.3 g/dL (1.3-4.6) 12/23/22 18:29 Nasal Influ A H1 2008 PCR Not detected (NOT DETECT) 12/23/22 21:43 Adenovirus (PCR) Not detected (NOT DETECT) 12/23/22 21:43 C. pneumoniae DNA (PCR) Not detected (NOT DETECT) 12/23/22 21:43 Coronavirus 229E (PCR) Not detected (NOT DETECT) 12/23/22 21:43 Human Metapneumovir PCR Not detected (NOT DETECT) 12/23/22 21:43 Influenza A (H1) PCR Not detected (NOT DETECT) 12/23/22 21:43 Influenza A (H3) PCR Not detected (NOT DETECT) 12/23/22 21:43 Influenza Type A (PCR) Not detected (NOT DETECT) 12/23/22 21:43 Influenza Type B (PCR) Not detected (NOT DETECT) 12/23/22 21:43 M. pneumoniae (PCR) Not detected (NOT DETECT) 12/23/22 21:43 Parainfluenza 1 (PCR) Not detected (NOT DETECT) 12/23/22 21:43 Parainfluenza 2 (PCR) Not detected (NOT DETECT) 12/23/22 21:43 Parainfluenza 3 (PCR) Not detected (NOT DETECT) 12/23/22 21:43 Parainfluenza 4 (PCR) Not detected (NOT DETECT) 12/23/22 21:43 RSV Type A (PCR) Not detected (NOT DETECT) 12/23/22 21:43 RSV Type B (PCR) Not detected (NOT DETECT) 12/23/22 21:43 Entero/Rhino (PCR) Not detected (NOT DETECT) 12/23/22 21:43 SARS-CoV-2 (PCR) Not detected (NOT DETECT) 12/23/22 21:43 Critical Care Time Critical Care Time: Critical Care Time: Yes Total Critical Care Time: 35 Attestation: Due to a high probability of clinically significant, possibly life threatening deterioration, the patient required my highest level of attention and preparedness to intervene emergently and I personally spent this critical care time directly and personally managing the patient. This critical care time inc luded obtaining a history; examining the patient; pulse oximetry; ordering and review of laboratory and imaging studies; arranging urgent treatment with development of a management plan; evaluation of patient's response to treatment; frequent reassessment; and, discussions with other providers as applicable. It was exclusive of separately billable procedures. Primary system involved is respiratory Discharge Plan Discharge Patient Disposition: Left Against Medical Advice Clinical Impression: Pneumonia, Shortness of breath, Acute respiratory failure with hypoxia, Acute exacerbation of chronic obstructive airways disease, Sepsis Condition: Serious Prescriptions: New levofloxacin 750 mg tablet 750 mg PO Q24H 14 Days Qty: 14 0RF Xopenex HFA 45 mcg/actuation HFA aerosol inhaler 2 inh inhalation Q4H PRN (Reason: shortness of breath or wheezing) Qty: 15 0RF No Action omega-3 acid ethyl esters 1 gram capsule 2 cap PO BID topiramate [Topamax] 200 mg tablet 200 mg PO BID montelukast [Singulair] 10 mg tablet 10 mg PO DAILY atorvastatin [Lipitor] 40 mg tablet 40 mg PO DAILY fenofibrate micronized 200 mg capsule 200 mg PO DAILY sucralfate 1 gram tablet 1 g PO BID levothyroxine 25 mcg capsule 25 mcg PO DAILY dicyclomine 20 mg tablet 20 mg PO TID levalbuterol tartrate [Xopenex HFA] 45 mcg/actuation HFA aerosol inhaler 1 puff inhalation Q6H PRN (Reason: shortness of breath or wheezing) Qty: 135 1RF Trelegy Ellipta 100-62.5-25 mcg blister with device 1 inh inhalation DAILY 30 Days Qty: 180 1RF Discharge Orders: Discharge ED (Routine); Ordered 12/23/22 Ordered By: Vlad Peña Other Ambulatory Orders: DME: Oxygen (Order) Location: None Selected Ordered By: Vlad Peña Referrals: Ally Amaya FNP [Primary Care Provider] - Discharge Diet: Usual diet Discharge Activity: Resume usual activity Patient Instructions: Heart Failure (ED), Using Oxygen at Home (ED), Pleural Effusion (DC), Bacterial Pneumonia (ED), Acute Respiratory Failure (ED) Activity Restrictions/Additional Instructions: Thank you for visiting the emergency department. You were seen and evaluated for respiratory symptoms. The most likely cause of your symptoms is multifactorial including heart failure and pneumonia. I unequivocally recommend inpatient management. You are declining admission to our hospital. You are also declining transfer for inpatient management that I offered. I believe that discharge poses a significant risk to your health including possibility of permanent debility/disability or . I will prescribe home oxygen. I will prescribe steroids and antibiotics. Please also use your levalbuterol metered-dose inhaler 2 puffs every 4 hours for 24 hours followed by 2 puffs every 6 hours for 24 hours followed by 2 puffs every 8 hours for 24 hours and then return to the normal schedule. Please follow-up with your primary care provider in the next day or 2. Return to the emergency department for anything that you are concerned about and feel needs emergency department evaluation. You may return to the emergency department for any reason at any time. 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
--- NOTE | 2022-12-23 18:10 | XRR_ITS ---
PROCEDURE INFORMATION: Exam: XR Chest Exam date and time: 12/23/2022 6:36 PM Age: 57 years old Clinical indication: Shortness of breath; Additional info: SOB TECHNIQUE: Imaging protocol: Radiologic exam of the chest. Views: 1 view. COMPARISON: CT chest con [id number] 07/16/2021 8:40 AM FINDINGS: Lungs: Ill-defined opacities at the lung bases likely reflecting atelectasis adjacent to the effusions. Pleural spaces: Bilateral small volume pleural effusions. No pneumothorax. Heart/Mediastinum: Unremarkable. No cardiomegaly. Bones/joints: Unremarkable. XR/XR chest 1V portable [id number] IMPRESSION: Bilateral small volume pleural effusions with bibasilar atelectasis.
[2022-12-23] MEDS: sodium chloride 0.9% 500 ML 999 ML IV (18:32)
[2022-12-23] MEDS: levalbuterol 1.25 mg/3 mL Neb INHALATION (18:32)
[2022-12-23 18:47] LABS: Basophils # 0.1 10^3/uL (0.0-0.1); Basophils % 0.3 %; Eosinophils % 0.2 %; Hematocrit 43.1 % (37.0-47.0); Hemoglobin 14.6 g/dL (11.5-15.3); Lymphocytes % 12.7 %; Mean Corpuscular HGB Conc 33.9 g/dL (30.0-36.0); Mean Corpuscular Hemoglobin 30.3 pg (28.0-34.0); Mean Corpuscular Volume 89.4 fl (81-99); Mean Platelet Volume 10.1 fL (7.4-10.4); Monocytes # 0.6 10^3/uL (0.2-0.9); Monocytes % 3.7 %; Neutrophils # 13.03 10^3/uL (1.8-7.7); Neutrophils % 81.4 %; Nucleated Red Blood Cells # 0.1 /100WBC; Nucleated Red Blood Cells % 0.8 %; Platelet Count 370 10^3/cmm (130-400); Red Blood Count 4.82 10^6/uL (4.1-5.3)
--- NOTE | 2022-12-23 18:48 | ECG_ITS ---
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 Measurements Intervals [place] Rate: 86 P: 99 OK: 191 QRS: -44 QRSD: 76 T: 0 QT: 371 QTc: 444 Interpretive Statements SINUS RHYTHM LEFT AXIS DEVIATION [QRS AXIS < -30] LOW QRS VOLTAGE IN PRECORDIAL LEADS [QRS DEFLECTION < 1.0 mV IN CHEST LEADS] POSSIBLE RIGHT VENTRICULAR CONDUCTION DELAY [RSR (QR) IN V1/V2] ANTEROSEPTAL MYOCARDIAL INFARCTION , OF INDETERMINATE AGE [40+ ms Q WAVE IN V1-V4] MODERATE T-WAVE ABNORMALITY, CONSIDER LATERAL ISCHEMIA [-0.1+ mV T-WAVE IN I/aVL/V5/V6] No previous ECG available for comparison Electronically Signed On 12-23-2022 21:07:41 CDT by Geovanny Watson M.D. [id number]
[2022-12-23 18:49] LABS: Slide Review Slide Review Perform
[2022-12-23 18:50] LABS: ABG PCO2 41.5 mmHg (35-45); Arterial Blood Gas Hematocrit 44.5 % (37-47); Base Excess ABG 0.8 mmol/L (-2.0-2.0); Blood Gas Allen Test Pos; Blood Gas Operator Identificat glc; Blood Gas Sample Site Radial, left; Blood Gas Sample Type Arterial; Carboxyhemoglobin 3.2 %THgb (0.4-20.1); HCO3 ABG 25.7 mmol/L (22-26); HGB O2 Sat 92.4 % (95-100); Methemoglobin 0.3 % (0.4-1.5); Oxygen Device NRB; PO2 ABG 90.4 mmHg (80.0-100.0); Total Hemoglobin 14.5 g/dL (12-16)
[2022-12-23 19:06] LABS: Troponin(5th) Baseline 36 ng/L (0-10)
[2022-12-23 19:15] LABS: Alanine Aminotransferase 24 U/L (0-33); Alkaline Phosphatase 103 U/L (35-105); Anion Gap 15.2 (5-19); Aspartate Amino Transferase 28 U/L (0-32); Blood Urea Nitrogen 15 mg/dL (6-20); Calcium 8.4 mg/dL (8.5-10.5); Carbon Dioxide 25 mmol/L (22-29); Chloride 94 mmol/L (98-107); Globulin 4.3 g/dL (1.3-4.6); Glomerular Filtration Rate 102.3 mL/min (90-130); Glucose 99 mg/dL (65-115); NT Pro B Type Natriuretic Pept 3253 pg/mL (0-125); Osmolality Calculated 273 mOsm/kg (285-295); Potassium 3.2 mmol/L (3.5-5.1); Sodium 131 mmol/L (136-145); Total Bilirubin 0.4 mg/dL (0.15-1.2); Total Protein 7.3 g/dL (6.6-8.7)
[2022-12-23 19:17] LABS: D Dimer 5.72 ug/mIFEU (0-0.59)
--- NOTE | 2022-12-23 19:21 | CTR_ITS ---
PROCEDURE INFORMATION: Exam: CTA Chest With Contrast Exam date and time: 12/23/2022 7:38 PM Age: 57 years old Clinical indication: Abnormal findings; Abnormal diagnostic tests; Elevated d-dimer; Prior surgery; Surgery date: 6+ months; Surgery type: Lt breast lumpectomy; Additional info: SOB, hypoxemia, elevated d-dimer TECHNIQUE: Imaging protocol: Computed tomographic angiography of the chest with contrast. 3D rendering (Not supervised by radiologist): MIP and/or 3D reconstructed images were created by the technologist. Radiation optimization: All CT scans at this facility use at least one of these dose optimization techniques: automated exposure control; mA and/or kV adjustment per patient size (includes targeted exams where dose is matched to clinical indication); or iterative reconstruction. Contrast material: OMNI 350; Contrast volume: 100 ml; Contrast route: INTRAVENOUS (IV); REPORTING DATA: Count of CT and Cardiac NM exams in prior 12 months: This patient has received 0 known CTs and 0 known cardiac nuclear medicine studies in the 12 months prior to the current study. COMPARISON: CT chest [facility] [id number] 07/16/2021 8:40 AM RADIATION DOSE METRICS: Total DLP (mGy-cm): 354.47 FINDINGS: Pulmonary arteries: No CT evidence for segmental pulmonary emboli. The main pulmonary arteries and outflow trunk are unremarkable. Aorta: No thoracic aortic aneurysm or dissection. Trachea: The central airway is normal. Lungs: Mild centrilobular emphysema is seen in the upper lobes. Some scattered regions of mild bronchovascular thickening and nodular ground-glass opacity are seen in the lower right upper lobes, lingula, and right middle lobe regions. Medium-sized regions of irregular consolidation are seen in bilateral lower lobes with air bronchograms. These findings may represent multifocal pneumonia. Recommend follow-up until resolution to exclude underlying pathology/ lymphangitic spread of tumor. Pleural spaces: No pneumothorax. No pleural effusion. Heart: Mild cardiomegaly. Normal RV/LV ratio of 1. Mild coronary arterial atherosclerotic vascular calcifications. No pericardial effusion. Lymph nodes: Enlarged right paratracheal 2 x 1.2 cm lymph node is seen. Enlarged bilateral hilar and subcarinal lymph nodes are seen, the largest measuring 1.8 x 1.5 cm. Enlarged aortopulmonic window and prevascular lymph nodes are seen. Subcarinal lymph node calcification is also seen. Bones/joints: No acute osseous abnormalities. Small degenerative osteophytes are seen throughout the thoracic spine. Soft tissues: Unremarkable. Other findings: Some fatty infiltration of the liver is once again seen. Some unchanged scattered liver and splenic calcified granulomas are seen. CT/CT angio chest PE protcl [id number] IMPRESSION: 1. No CTA evidence of pulmonary embolism, thoracic aortic aneurysm or thoracic aortic dissection. 2. Some scattered regions of mild bronchovascular thickening and nodular ground-glass opacity seen in the lower right upper lobes, lingula, and right middle lobe regions. Medium-sized regions of irregular consolidation seen in bilateral lower lobes with air bronchograms. These findings may represent multifocal pneumonia. Recommend follow-up until resolution to exclude underlying pathology/ lymphangitic spread of tumor. 3. Mediastinal lymphadenopathy, as noted above. 4. Mild cardiomegaly. COMMENTS: In the absence of a history or active diagnosis of lung cancer, it is recommended that this patient with emphysema be evaluated for enrollment in a low dose CT lung cancer screening program.
[2022-12-23] MEDS: iohexol 350 mg/mL 500 mL Btl (per mL) IV (19:41)
--- NOTE | 2022-12-23 19:58 | PC.NURSE ---
Pt hooked up to continuous bedside cardiac monitoring.
[2022-12-23 20:54] LABS: Troponin 5 2HR 32.36 ng/L (0-10)
[2022-12-23 21:05] LABS: Troponin 5 2HR Delta -3.64 ABS# (0-10)
[2022-12-23] MEDS: piperacillin-tazobactam 4.5 GM in sodium chloride 0.9% (plus) 50 ML IV (21:15)
--- NOTE | 2022-12-23 22:20 | PC.NURSE ---
Dr. Peña notified of pt O2 sat of 88% on 13L oxymask. Pt wants to leave AMA. Provider notified.
[2022-12-23 23:40] LABS: Adenovirus Not Detected (NOT DETECT); Chlamydia Pneumoniae Not Detected (NOT DETECT); Coronavirus 229E,HKU1,NL63,OC4 Not Detected (NOT DETECT); Human Metapneumovirus Not Detected (NOT DETECT); Human Rhinovirus/Enterovirus Not Detected (NOT DETECT); Influenza A Not Detected (NOT DETECT); Influenza A H1 Not Detected (NOT DETECT); Influenza A H1-2009 Not Detected (NOT DETECT); Influenza A H3 Not Detected (NOT DETECT); Influenza B Not Detected (NOT DETECT); Mycoplasma Pneumoniae Not Detected (NOT DETECT); Parainfluenza Virus Type 1 Not Detected (NOT DETECT); Parainfluenza Virus Type 2 Not Detected (NOT DETECT); Parainfluenza Virus Type 3 Not Detected (NOT DETECT); Parainfluenza Virus Type 4 Not Detected (NOT DETECT); Respiratory Syncytial Virus A Not Detected (NOT DETECT); Respiratory Syncytial Virus B Not Detected (NOT DETECT); SARS-COV-2 Not Detected (NOT DETECT)
[2022-12-24 00:22] VITALS: BP 95/63; PULSE 89; RESP 20; O2SAT 90
== END 2022-12-24 00:33 | disposition left against medical advice (07) ==
PROVIDERS: Emergency Provider Emergency Medicine; PCP Nurse Practitioner Family
DX: A41.9 Sepsis, unspecified organism (principal); J44.0 Chronic obstructive pulmonary disease with (acute) lower respiratory infection; J18.9 Pneumonia, unspecified organism; J44.1 Chronic obstructive pulmonary disease with (acute) exacerbation; J96.01 Acute respiratory failure with hypoxia; Z20.822 Contact with and (suspected) exposure to COVID-19; F17.210 Nicotine dependence, cigarettes, uncomplicated; E78.5 Hyperlipidemia, unspecified
CPT/HCPCS: 36600; 71045; 71275; 80053; 82805; 83605; 83880; 84484; 85025; 85378; 87040; 87486; 87581; 87633; 93005; 94640; 96365; 96367; 96375; 99285; J2543; J2930; J3370; J7040; J7613; J7614; Q9967

== ENCOUNTER 2025-07-05 09:21 | Outpatient (CLI) | payer MEDICARE, MEDICAID, SELFPAY ==
--- NOTE | 2025-07-05 09:24 | MM_ITS ---
WS: [id number] BILATERAL SCREENING DIGITAL TOMOSYNTHESIS MAMMOGRAM WITH CAD HISTORY: SCREENING COMPARISON: 07/23/2022, 03/18/2020 Bilateral CC and MLO views with tomosynthesis and synthetic mammography submitted. Computer aided detection analyzed. Breast composition: There are scattered areas of fibroglandular density. No suspicious masses, microcalcifications or architectural distortion. Benign calcifications in each breast. Prior biopsy clip in the central LEFT breast. MM/MM scr BI tomosynthesis 20041 IMPRESSION: BI-RADS: 2 - Benign. FOLLOW UP: 1 Year Follow-up
== END 2025-07-05 09:22 | disposition home or self-care (01) ==
LOC: RAD 09:21
PROVIDERS: PCP Nurse Practitioner Family; Visit Provider Nurse Practitioner Family
DX: Z12.31 Encounter for screening mammogram for malignant neoplasm of breast (principal); R92.323 Mammographic fibroglandular density, bilateral breasts; R92.1 Mammographic calcification found on diagnostic imaging of breast; Z96.89 Presence of other specified functional implants
CPT/HCPCS: 77063; 77067

== ENCOUNTER → 2025-07-24 08:54 | Outpatient (BNVA) | payer MEDICARE, MEDICAID, SELFPAY | PROVIDERS: PCP Nurse Practitioner Family; Visit Provider Internal Medicine | DX: J44.9 Chronic obstructive pulmonary disease, unspecified (principal); E88.01 Alpha-1-antitrypsin deficiency; Z99.81 Dependence on supplemental oxygen; F17.210 Nicotine dependence, cigarettes, uncomplicated | CPT/HCPCS: 99204; Q3014 ==